=== PATIENT | female | born 1955 | race Caucasian/White ===

== ENCOUNTER 2022-01-20 13:58 | Outpatient (REF) | payer SELFPAY | END 2022-01-20 13:59 | disposition home or self-care (01) | LOC: HO.HAP 13:58 | PROVIDERS: Visit Provider Internal Medicine | DX: Z13.89 Encounter for screening for other disorder (principal) ==

== ENCOUNTER 2022-05-27 14:24 | Outpatient (REF) | payer SELFPAY | END 2022-05-27 14:25 | disposition home or self-care (01) | LOC: HO.HAP 14:24 | PROVIDERS: Visit Provider Internal Medicine | DX: Z13.89 Encounter for screening for other disorder (principal) ==

== ENCOUNTER 2022-11-22 13:21 | Outpatient (REF) | payer SELFPAY ==
--- NOTE | 2022-11-22 13:58 | MHC.AU.HFU ---
Hearing Instrument Follow-Up- Binaural Date of Visit: 11/22/22 Right Ear: ReSound One 7 [id number], SN# [id number], Bronze Varnish Mixer SN: [id number] Repair Warranty: 05/15/2025 Loss and Damage Warranty: 05/15/2025 Battery Size: Rechargeable Textile Science Technician: #1 MP Type of Mold: ReSound MicroMold with Canal Lock, Clear, Hard Acrylic #[id number], Repair/Remake warranty 10/15/2022 Type of Wax Guard: ReSound Dispensed By: [facility] Date of Fittin04/29/2022 Left Ear: ReSound One 7 [id number], [id number], Bronze Varnish Mixer SN: [id number] Repair Warranty: 05/15/2025 Loss and Damage Warranty: 05/15/2025 Battery Size: Rechargeable Textile Science Technician: #1 MP Type of Mold: ReSound MicroMold with Canal Lock, Clear, Hard Acrylic #[id number], Repair/Remake warranty 10/15/2022 Type of Wax Guard: ReSound Dispensed By: [facility] Date of Fittin04/29/2022 Follow-Up Summary: The patient is here for a follow-up hearing aid check. She reports hearing very well with her hearing aids and has no significant concerns. She really enjoys streaming phone calls from her iPhone. She does not find much benefit from the ReSound cindy but likes having it set up if needed. Visual inspection of the hearing aids was unremarkable. Brushed microphones and replaced the wax guards bilaterally. Listening check reveals clear sound. The patient will be due for an updated audiogram as of 01/07/23. I suggested she contact her PCP to fax us an order so we can get that scheduled. No charge today, in warranty. Diagnosis Code(s): Primary Diagnosis: H90.3 Bilateral Sensorineural Hearing Loss Signature: Provider: Katheryn Stoll, [facility]
== END 2022-11-22 13:22 | disposition home or self-care (01) ==
LOC: HO.HAP 13:21
PROVIDERS: Visit Provider Internal Medicine
DX: Z13.89 Encounter for screening for other disorder (principal)

== ENCOUNTER 2023-05-05 13:57 | Outpatient (REF) | payer OTHER, SELFPAY ==
--- NOTE | 2023-05-05 15:01 | MHC.AU.HA3 ---
Hearing Instrument Follow-Up- Binaural Date of Visit: 05/05/23 Right Ear: Moses, Model, Color, Serial Number: ReSound One 7 [id number] SN: [id number] Color: Bronze Jointer Submarine Cable Repair Warranty: 05/15/2025 Jointer Submarine Cable Loss and Damage Warranty: 05/15/2025 Battery Size: Rechargeable Bale Sewer/Slim Tube: #1 MP Earmold/Dome/CShell/SlimTip:ReSound MicroMold with Canal Lock, Clear, Hard Acrylic #[id number], Repair/Remake warranty 10/15/2022 Dispensed By: [facility] Date of Fittin04/29/2022 Left Ear: Make, Model, Color, Serial Number: ReSound One 7 [id number] SN: [id number] Color: Bronze Jointer Submarine Cable Repair Warranty: 05/15/2025 Jointer Submarine Cable Loss and Damage Warranty: 05/15/2025 Battery Size: Rechargeable Bale Sewer/Slim Tube: #1 MP Earmold/Dome/CShell/SlimTip: ReSound MicroMold with Canal Lock, Clear, Hard Acrylic #[id number], Repair/Remake warranty 10/15/2022 Dispensed By: [facility] Date of Fittin04/29/2022 Follow-Up Summary: Frances returned for routine hearing aid maintenance following an updated audio (see separate report). Cleaned hearing aids and ear molds. Vacuumed microphones and ran through dehumidifier. A listening check demonstrated that the hearing aids are in good working order. No programming changes as hearing is stable and Frances is happy with the current sound quality. She did report some difficulty on the phone at work. 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 Also advised if she needs a letter for accommodations including amplified telephone, a note can be written. However, Frances reported she is close to halfway and it is not necessary at this time. Recommendations: Hearing instrument follow-up or maintenance as needed. Please contact our clinic with any questions or concerns. Diagnosis Code(s): Primary Diagnosis: H90.3 Bilateral Sensorineural Hearing Loss Signature: Provider: Marito Gallagher, [facility]
== END 2023-05-05 13:58 | disposition home or self-care (01) ==
LOC: HO.SH 13:57
PROVIDERS: Visit Provider Internal Medicine
DX: Z01.118 Encounter for examination of ears and hearing with other abnormal findings (principal); H90.3 Sensorineural hearing loss, bilateral
CPT/HCPCS: 92557

== ENCOUNTER 2024-04-30 15:16 | Outpatient (REF) | payer OTHER, SELFPAY | END 2024-04-30 15:17 | disposition home or self-care (01) | LOC: HO.SH 15:16 | PROVIDERS: Visit Provider Internal Medicine | DX: Z01.118 Encounter for examination of ears and hearing with other abnormal findings (principal); H90.3 Sensorineural hearing loss, bilateral | CPT/HCPCS: 92552; 92556 ==

== ENCOUNTER 2025-03-10 14:59 | Outpatient (REF) | payer SELFPAY ==
--- OUTSIDE RECORDS SUMMARY | 2025-03-10 16:45 | XMS_ITS | Clinical Summary ---
Author Organization [address] Address [address] [place] [address] Phone Care Team Providers Care Building Construction Contractor Name Role Phone Laurie Hayden MD Primary Care Provider +1- [phone] Allergies Active Allergy Reactions Criticality Noted Date Comments Sulfamethoxazole-Trimethoprim 2024 Sulfamethoxazole 01/31/2025 Medications valACYclovir (VALTREX) 1 gram tablet Take 2 tablets (2,000 mg total) by mouth every 12 (twelve) hours. 12/10/2024 Active calcium carbonate/vitam in D3 (CALCIUM 600 + D,3, ORAL) Take by mouth. Active docosahexaenoic acid/epa (FISH OIL ORAL) Take by mouth. Active glucosamine sulfate (Glucosamine) 500 mg tablet Take 1 tablet (500 mg total) by mouth 1 (one) time each day. Active vit C/E/zinc ox/kimberley/lut/osmar x (ICAPS AREDS2 ORAL) Take by mouth. Active Encounters Date Type Department Care Team Description 01/31/2025 Telephone Gastroenterology - [address] [address] Jose Luis Sosa MD from Last 3 Months Social History Tobacco Use Types Packs/Day Years Used Date Smoking Tobacco: Never Smokeless Tobacco: Never Alcohol Use Standard Drinks/Week Comments Not Currently 0 (1 standard drink = 0.6 oz pur e alcohol) Comments Unknown Sex and Gender Information Value Date Recorded Sex Assigned at Not on file Legal Sex Female 4:06 AM EST Gender Identity Not on file Sexual Orientation Not on file Obstetrics History Last Filed Vital Signs Vital Sign Reading Time Taken Comments Blood Pressure 110/72 06/10/2022 9:12 AM EDT Sit ting L Arm Pulse 67 06/10/2022 9:12 AM EDT Temperature - - Respiratory Rate - - Oxygen Saturation - - Inhaled Oxygen Concentration - - Weight 54.9 kg (121 lb) 06/10/2022 9:12 AM EDT Height 154.9 cm (5' 1 ) 06/10/2022 9:12 AM EDT Body Mass Index 22.86 06/10/2022 9:12 AM EDT Plan of Treatment Health Maintenance Due Date Last Done Comments Breast Cancer Screening 1955 DTaP,Tdap,and Td Vaccines (1 - Tdap) 01/28/1972 Pneumococcal Vaccine: 50+ Ye ars (1 of 1 - PCV) 2003 Zoster Vaccines (1 of 2) 2003 Colorectal Cancer Screening: Colonoscopy 09/10/2022 Depression Screening 09/10/2022 Falls Risk Assessment 09/10/2022 Hepatitis C Screening 09/10/2022 Osteoporosis Screening (Bone Density Screening) 09/10/2022 Social Influencers of Health Screening 09/10/2022 COVID-19 Vaccine ( - 2023-2 5 season) 2024 Influenza Vaccine (Season Ended) 2025 RSV Immunization Adult Patie nts (1 - 1-dose 75+ series) 01/28/2028 HIB Vaccines Aged Out No longer eligi ble based on patient's age to complete this topic HPV Vaccines Aged Out No longer eligi ble based on patient's age to complete this topic Hepatitis A Vaccines Aged Out No long er eligible based on patient's age to complete this topic Hepatitis B Vaccines Aged Out No long er eligible based on patient's age to complete this topic IPV Vaccines Aged Out No longer eligi ble based on patient's age to complete this topic MMR Vaccines Aged Out No longer eligi ble based on patient's age to complete this topic Meningococcal ACWY Vaccine Aged Out N o longer eligible based on patient's age to complete this topic Meningococcal B Vaccine Aged Out No l onger eligible based on patient's age to complete this topic RSV Immunization Patients Un karen 20 months Aged Out No longer eligible b ased on patient's age to complete this topic Varicella Vaccines Aged Out No longer eligible based on patient's age to complete this topic Insurance MEDICARE [facility] [place] [id number] Care Teams Building Construction Contractor Relationship Specialty Start Date End Date Laurie Hayden MD PCP - General Internal Medicine 04/15/21
== END 2025-03-10 15:00 | disposition home or self-care (01) ==
LOC: HO.SH 14:59
PROVIDERS: Visit Provider Internal Medicine
DX: Z13.89 Encounter for screening for other disorder (principal)

== ENCOUNTER 2025-03-24 13:05 | Outpatient (REF) | payer SELFPAY ==
--- OUTSIDE RECORDS SUMMARY | 2025-03-24 14:29 | XMS_ITS | Clinical Summary ---
Author Organization [address] Address [address] [place] [address] Phone Care Team Providers Care Cuffer Name Role Phone Laurie Hayden MD Primary Care Provider +1- [phone] Allergies Active Allergy Reactions Criticality Noted Date [...] Team Description 01/31/2025 Telephone Gastroenterology - [address] [address] Jose Luis Sosa MD from [...] age to complete this topic Insurance MEDICARE [facility] [place] [id number] Care Teams Cuffer Relationship Specialty Start Date End Date Laurie Hayden MD PCP - General Internal Medicine 04/15/21
== END 2025-03-24 13:06 | disposition home or self-care (01) ==
LOC: HO.HAP 13:05
PROVIDERS: Visit Provider Internal Medicine
DX: Z13.89 Encounter for screening for other disorder (principal)

== ENCOUNTER 2025-04-10 09:45 | Outpatient (REF) | payer SELFPAY ==
--- OUTSIDE RECORDS SUMMARY | 2025-04-10 10:16 | XMS_ITS | Clinical Summary ---
Author Organization [address] Address [address] [place] [address] Phone Care Team Providers Care Dairy Nutrition Specialist Name Role Phone Laurie Hayden MD Primary Care Provider +1- [phone] Allergies Active Allergy Reactions Criticality Noted Date [...] Team Description 01/31/2025 Telephone Gastroenterology - [address] [address] Jose Luis Sosa MD from [...] - 2023-2 5 season) 2024 Influenza Vaccine (#1) 2025 RSV Immunization Adult Patie nts (1 [...] age to complete this topic Insurance MEDICARE [facility] [place] [id number] Care Teams Dairy Nutrition Specialist Relationship Specialty Start Date End Date Laurie Hayden MD PCP - General Internal Medicine 04/15/21
== END 2025-04-10 09:46 | disposition home or self-care (01) ==
LOC: HO.HAP 09:45
PROVIDERS: Visit Provider Internal Medicine
DX: Z13.89 Encounter for screening for other disorder (principal)